=== PATIENT | male | born 1980 | race Caucasian/White ===

== ENCOUNTER 2019-04-13 17:54 | Emergency (ER) | payer MEDICAID ==
[~2019-04-13] VITALS: Ht 185.4 cm; Wt 136.2 kg
[2019-04-13 18:01] VITALS: BP 157/87
[2019-04-13] MEDS ORDERED: DOXY100C77 PO (18:57)
== END 2019-04-13 19:23 | disposition home or self-care (01) ==
LOC: ER 17:55
DX: L03.116 Cellulitis of left lower limb (principal); I10 Essential (primary) hypertension; F41.9 Anxiety disorder, unspecified; F32.9 Major depressive disorder, single episode, unspecified; Z56.0 Unemployment, unspecified; Z88.0 Allergy status to penicillin; Z79.899 Other long term (current) drug therapy
CPT/HCPCS: 99283

== ENCOUNTER 2019-06-01 10:37 | Inpatient (IN) | payer MEDICAID ==
[~2019-06-01] VITALS: Ht 185.4 cm; Wt 134.1 kg
--- NOTE | 2019-06-01 | NUR ---
resting eyes closed no changes.
[2019-06-01 12:26] LABS: BASOPHILS # (AUTO) 0.1 X10'3 (0-0.2); BASOPHILS % (AUTO) 0.5 % (0-1); EOSINOPHILS # (AUTO) 0.1 X10'3 (0-0.9); EOSINOPHILS % (AUTO) 0.8 % (0-6); HEMATOCRIT 44.6 % (42.0-52.0); HEMOGLOBIN 14.9 g/dl (14.0-17.9); LYMPHOCYTES # (AUTO) 2.3 X10'3 (1.1-4.8); LYMPHOCYTES % (AUTO) 14.5 % (21-51); MEAN CORPUSCULAR HEMOGLOBIN 29.7 PG (27.0-31.0); MEAN CORPUSCULAR HGB CONC 33.3 g/dL (33.0-36.5); MEAN CORPUSCULAR VOLUME 89.2 FL (78-98); MEAN PLATELET VOLUME 8.2 FL (7.4-10.4); MONOCYTES # (AUTO) 1.8 X10'3 (0-0.9); MONOCYTES % (AUTO) 11.2 % (2-12); NEUTROPHILS # (AUTO) 11.8 X10'3 (1.8-7.7); PLATELET COUNT 305 X10'3 (140-440); RED CELL DISTRIBUTION WIDTH 12.5 % (11.5-14.5); WHITE BLOOD COUNT 16.1 X10'3 (4.5-11.0)
[2019-06-01 12:31] LABS: CLARITY,URINE CLEAR (Clear); COLOR,URINE STRAW (Yellow); GLUCOSE, URINE NEGATIVE (Neg); KETONES,URINE NEGATIVE (Neg); LEUKOCYTE ESTERASE ,URINE NEGATIVE (Neg); NITRITES, URINE NEGATIVE (Neg); OCCULT BLOOD,URINE TRACE-INTACT (Neg); PROTEIN,URINE NEGATIVE (Neg); UA COLLECTION TYPE CLN CATCH MIDSTREAM; UROBILINOGEN,URINE 0.2 E.U/dL (0.2-1.0)
[2019-06-01 12:38] LABS: BACTERIA,URINE NONE SEEN /HPF (Neg); MUCUS STRANDS NONE SEEN /LPF (Neg); RBC,URINE 0-2 /HPF (0-2); SQUAMOUS EPITHELIAL CELL,UR NONE SEEN /LPF (FEW); WBC,URINE NONE SEEN /HPF (0-4)
[2019-06-01 12:39] LABS: ALANINE AMINOTRANSFERASE 33 U/L (12-78); ALBUMIN 4.3 G/DL (3.4-5.0); ALBUMIN/GLOBULIN RATIO 1.1 (1.1-1.5); ALKALINE PHOSPHATASE 76 IU/L (46-116); ANION GAP 5 (8-16); ASPARTATE AMINO TRANSFERASE 16 U/L (10-37); BILIRUBIN,TOTAL 1.8 MG/DL (0.1-1.0); BLOOD UREA NITROGEN 13 MG/DL (7-18); BUN/CREATININE RATIO 10.3 (5.4-32.0); CALCIUM 9.1 MG/DL (8.5-10.1); CHLORIDE 103 MMOL/L (99-107); CREATININE 1.26 MG/DL (0.60-1.10); GLUCOSE 103 MG/DL (70-104); LIPASE 130 U/L (73-393); SODIUM 137 MMOL/L (135-145); TOTAL CARBON DIOXIDE 28.8 MMOL/L (24-32); TOTAL PROTEIN 8.2 G/DL (6.4-8.2); eGFR 63 ML/MIN
[2019-06-01] MEDS ORDERED: metroNIDAZOLE-Flagyl 500mg/NS 100 ML IV ONE (13:35)
[2019-06-01] MEDS ORDERED: CefTRIAXone/D5W-Rocephin 1gm 50 ML IV ONE (13:35)
[2019-06-01] MEDS ORDERED: magnesium hydroxide 30ml (MOM) UD suspension PO PRN (13:40)
[2019-06-01] MEDS ORDERED: morphine 2 MG/ML inj. syringe IV PRN ×2 (13:40)
[2019-06-01] MEDS ORDERED: mag hydrox/Alum hydrox/simeth 30ml oral suspension PO PRN (13:40)
[2019-06-01] MEDS ORDERED: ondansetron/PF 4mg/2ml inj IV PRN (13:40)
[2019-06-01] MEDS ORDERED: acetaminophen 325mg tablet PO PRN (13:40)
[2019-06-01] MEDS ORDERED: normal saline 1000ML IV soln IVB ONE (13:50)
[2019-06-01] MEDS ORDERED: LORA-269 PO ×2 (13:52→13:55)
[2019-06-01] MEDS ORDERED: LORA2TAB96 PO (13:52)
[2019-06-01] MEDS ORDERED: LORazepam 1 MG tablet PO PRN (14:30)
--- NOTE | 2019-06-01 14:55 | NUR ---
Report received from ED RN, Kareem.
[2019-06-01 15:15] VITALS: BP 145/104
[2019-06-01] MEDS: normal saline 1000ml 1,000 ML IV SCH (15:54)
[2019-06-01] MEDS: acetaminophen 325mg tablet PO PRN ×2 (16:20→22:22)
--- NOTE | 2019-06-01 18:30 | NUR ---
Problems reprioritized. Patient report given, questions answered & plan of care reviewed with LEONA Horvath.
--- NOTE | 2019-06-01 18:42 | NUR ---
Patient in room [facility]. I have received report from NORA DELGADILLO and had the opportunity to ask questions and assume patient care. Addendum: 06/01/19 at 1842 by Yuliet Blevins RN Amended: Links added.
[2019-06-01 19:00] VITALS: BP 108/72
[2019-06-01] MEDS: LORazepam 1 MG tablet PO SCH (20:59)
--- NOTE | 2019-06-01 22:23 | NUR ---
MEDICATED FOR ABD PAIN 07/24 WITH TYLENOL PER REQUEST.
--- NOTE | 2019-06-01 22:24 | NUR ---
PT WAS UP AMBULATING IN THE HALLS HAD DRANK SOME WARM APPLE JUICE WITH BUTTER. PT FACETIME WITH HIS .
[2019-06-02] VITALS: BP 127/79
[2019-06-02] MEDS: metroNIDAZOLE-Flagyl 500mg/NS 100 ML IV SCH ×4 (00:15→23:30)
--- NOTE | 2019-06-02 02:00 | NUR ---
up ambulated to brp tolerated well. no complaints.
[2019-06-02] MEDS: normal saline 1000ml 1,000 ML IV SCH ×3 (03:01→21:05)
--- NOTE | 2019-06-02 04:00 | NUR ---
resting eyes closed without s&s of distress at this time.
--- NOTE | 2019-06-02 05:41 | NUR ---
RESTING WITH CPAP ON NO S&S OF DISTRESS.
[2019-06-02 06:03] LABS: BASOPHILS # (AUTO) 0.1 X10'3 (0-0.2); BASOPHILS % (AUTO) 0.6 % (0-1); EOSINOPHILS # (AUTO) 0.2 X10'3 (0-0.9); EOSINOPHILS % (AUTO) 1.1 % (0-6); HEMATOCRIT 40.9 % (42.0-52.0); HEMOGLOBIN 13.7 g/dl (14.0-17.9); LYMPHOCYTES # (AUTO) 2.6 X10'3 (1.1-4.8); LYMPHOCYTES % (AUTO) 19.2 % (21-51); MEAN CORPUSCULAR HGB CONC 33.4 g/dL (33.0-36.5); MEAN CORPUSCULAR VOLUME 89.6 FL (78-98); MEAN PLATELET VOLUME 8.6 FL (7.4-10.4); MONOCYTES # (AUTO) 1.7 X10'3 (0-0.9); MONOCYTES % (AUTO) 12.9 % (2-12); NEUTROPHILS # (AUTO) 8.9 X10'3 (1.8-7.7); NEUTROPHILS % (AUTO) 66.2 % (42-75); PLATELET COUNT 268 X10'3 (140-440); RED BLOOD COUNT 4.56 X10'6 (4.70-6.10); RED CELL DISTRIBUTION WIDTH 12.5 % (11.5-14.5); WHITE BLOOD COUNT 13.5 X10'3 (4.5-11.0)
--- NOTE | 2019-06-02 06:10 | NUR ---
Patient in room [facility]. I have received report from LEONA Horvath and had the opportunity to ask questions and assume patient care.
[2019-06-02 06:30] VITALS: BP 113/69
[2019-06-02 06:38] LABS: ALBUMIN 3.5 G/DL (3.4-5.0); ANION GAP 9 (8-16); BLOOD UREA NITROGEN 10 MG/DL (7-18); BUN/CREATININE RATIO 9.1 (5.4-32.0); CALCIUM 8.8 MG/DL (8.5-10.1); CHLORIDE 106 MMOL/L (99-107); GLUCOSE 95 MG/DL (70-104); POTASSIUM 4.1 MMOL/L (3.5-5.1); SODIUM 140 MMOL/L (135-145); TOTAL CARBON DIOXIDE 25.2 MMOL/L (24-32); eGFR 74 ML/MIN
--- NOTE | 2019-06-02 06:41 | NUR ---
Problems reprioritized. Patient report given, questions answered & plan of care reviewed with NORA DELGADILLO. Addendum: 06/02/19 at 0642 by Yuliet Blevins RN Amended: Links added.
[2019-06-02] MEDS: acetaminophen 325mg tablet PO PRN ×3 (07:55→22:11)
[2019-06-02] MEDS: levoFLOXACIN-Levaquin 750MG/D5 150 ML IV SCH (09:34)
[2019-06-02 11:00] VITALS: BP 127/78
--- NOTE | 2019-06-02 18:10 | NUR ---
Problems reprioritized. Patient report given, questions answered & plan of care reviewed with LEONA Horvath.
--- NOTE | 2019-06-02 18:49 | NUR ---
Patient in room [facility]. I have received report from NORA DELGADILLO and had the opportunity to ask questions and assume patient care. Addendum: 06/02/19 at 1849 by Yuliet Blevins RN Amended: Links added.
[2019-06-02 19:00] VITALS: BP 126/72
[2019-06-02] MEDS: lactobacillus rhamnosus 10,000 MMU CELLS/CAPSULE PO SCH (21:05)
[2019-06-02] MEDS: LORazepam 1 MG tablet PO SCH (21:05)
--- NOTE | 2019-06-02 22:09 | NUR ---
medicated with tylenol for abd pain 2/10 at this time.
--- NOTE | 2019-06-02 23:31 | NUR ---
pt up ambulating in the [place] after having a small formed non mucoid stool. pt states he feels a lot better.
[2019-06-03] VITALS: BP 125/75
--- NOTE | 2019-06-03 01:10 | NUR ---
resting with cpap without changes.
[2019-06-03 02:10] VITALS: BP 143/89
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
--- NOTE | 2019-06-03 02:41 | NUR ---
SEE ABOVE NOTES REGARDING PT STATED PANIC ATTACK. Addendum: 06/03/19 at 0241 by Yuliet Blevins RN Amended: Links added.
--- NOTE | 2019-06-03 02:42 | NUR ---
BP NOW 143/84 SAT 99% RESP 18, HEART RATE 89.
--- NOTE | 2019-06-03 03:45 | NUR ---
AWAKE IV TUBING CHANGED. OFF CPAP AT THIS TIME THEN UP AMBULATING IN THE [place]. PT STATES FEELS BETTER NOW.
[2019-06-03] MEDS: normal saline 1000ml 1,000 ML IV SCH (05:34)
--- NOTE | 2019-06-03 05:38 | NUR ---
PT RESTING EYES CLOSED WITHOUT S&S OF DISTRESS REMAINS ON CPAP. APPEARS COMFORTABLE.
[2019-06-03 06:13] LABS: BASOPHILS % (AUTO) 0.5 % (0-1); EOSINOPHILS # (AUTO) 0.2 X10'3 (0-0.9); EOSINOPHILS % (AUTO) 1.8 % (0-6); HEMATOCRIT 40.3 % (42.0-52.0); HEMOGLOBIN 13.8 g/dl (14.0-17.9); LYMPHOCYTES # (AUTO) 2.4 X10'3 (1.1-4.8); MEAN CORPUSCULAR HEMOGLOBIN 30.6 PG (27.0-31.0); MEAN CORPUSCULAR HGB CONC 34.1 g/dL (33.0-36.5); MEAN CORPUSCULAR VOLUME 89.5 FL (78-98); MEAN PLATELET VOLUME 8.4 FL (7.4-10.4); MONOCYTES # (AUTO) 1.2 X10'3 (0-0.9); NEUTROPHILS # (AUTO) 6.7 X10'3 (1.8-7.7); NEUTROPHILS % (AUTO) 63.7 % (42-75); PLATELET COUNT 280 X10'3 (140-440); RED CELL DISTRIBUTION WIDTH 12.7 % (11.5-14.5); WHITE BLOOD COUNT 10.5 X10'3 (4.5-11.0)
--- NOTE | 2019-06-03 06:20 | NUR ---
Patient in room [facility]. I have received report from LEONA Horvath and had the opportunity to ask questions and assume patient care.
--- NOTE | 2019-06-03 06:28 | NUR ---
Problems reprioritized. Patient report given, questions answered & plan of care reviewed with NORA DELGADILLO. Addendum: 06/03/19 at 0629 by Yuliet Blevins RN Amended: Links added.
[2019-06-03 06:30] VITALS: BP 126/75
[2019-06-03 06:41] LABS: ALBUMIN 3.5 G/DL (3.4-5.0); ANION GAP 12 (8-16); BLOOD UREA NITROGEN 9 MG/DL (7-18); BUN/CREATININE RATIO 7.8 (5.4-32.0); CALCIUM 9.1 MG/DL (8.5-10.1); CHLORIDE 106 MMOL/L (99-107); CREATININE 1.16 MG/DL (0.60-1.10); GLUCOSE 92 MG/DL (70-104); POTASSIUM 3.9 MMOL/L (3.5-5.1); SODIUM 143 MMOL/L (135-145); TOTAL CARBON DIOXIDE 24.8 MMOL/L (24-32); eGFR 70 ML/MIN
[2019-06-03] MEDS: metroNIDAZOLE-Flagyl 500mg/NS 100 ML IV SCH (07:30)
[2019-06-03] MEDS: lactobacillus rhamnosus 10,000 MMU CELLS/CAPSULE PO SCH (07:30)
[2019-06-03] MEDS: levoFLOXACIN-Levaquin 750MG/D5 150 ML IV SCH (09:21)
[2019-06-03] MEDS ORDERED: LEVO750T21 PO (10:58)
[2019-06-03] MEDS ORDERED: METR-159 PO (10:58)
--- NOTE | 2019-06-03 13:35 | NUR ---
DC inst provided to pt. IV DC'd, tip intact. All belongings sent w/pt. Pt ambulated to front lobby.
== END 2019-06-03 13:30 | disposition home or self-care (01) | DRG 244 ==
LOC: ER 10:38 → ED HOLD 13:40 → EDBEDREQ 14:16 → SUR 3N 15:35
PROVIDERS: ADMIT Family Medicine; ATTEND Family Medicine
DX: K57.32 Diverticulitis of large intestine without perforation or abscess without bleeding (principal); D72.829 Elevated white blood cell count, unspecified; F32.9 Major depressive disorder, single episode, unspecified; F41.9 Anxiety disorder, unspecified; R00.0 Tachycardia, unspecified; G47.00 Insomnia, unspecified; G47.30 Sleep apnea, unspecified; I10 Essential (primary) hypertension; Z88.0 Allergy status to penicillin; Z79.899 Other long term (current) drug therapy
CPT/HCPCS: 36415; 74176; 80048; 80053; 81001; 83605; 83690; 83735; 85025; 87040; 87081; 99285; G0378; J0696; J1956; J3490; J7030

== ENCOUNTER 2019-06-30 00:12 | Emergency (ER) | payer MEDICAID ==
[~2019-06-30] VITALS: Ht 185.4 cm; Wt 132.0 kg
[~2019-06-30 00:12] MED LIST: LORA-269 PO; METR-159 PO
[2019-06-30 00:52] LABS: CLARITY,URINE CLEAR (Clear); COLOR,URINE YELLOW (Yellow); GLUCOSE, URINE NEGATIVE (Neg); KETONES,URINE NEGATIVE (Neg); LEUKOCYTE ESTERASE ,URINE NEGATIVE (Neg); NITRITES, URINE NEGATIVE (Neg); OCCULT BLOOD,URINE NEGATIVE (Neg); PROTEIN,URINE NEGATIVE (Neg); UROBILINOGEN,URINE 0.2 E.U/dL (0.2-1.0)
[2019-06-30 00:54] LABS: BASOPHILS # (AUTO) 0.1 X10'3 (0-0.2); BASOPHILS % (AUTO) 0.7 % (0-1); EOSINOPHILS # (AUTO) 0.3 X10'3 (0-0.9); EOSINOPHILS % (AUTO) 2.8 % (0-6); HEMATOCRIT 44.3 % (42.0-52.0); HEMOGLOBIN 14.8 g/dl (14.0-17.9); LYMPHOCYTES # (AUTO) 3.7 X10'3 (1.1-4.8); LYMPHOCYTES % (AUTO) 32.4 % (21-51); MEAN CORPUSCULAR HEMOGLOBIN 29.8 PG (27.0-31.0); MEAN CORPUSCULAR HGB CONC 33.4 g/dL (33.0-36.5); MEAN CORPUSCULAR VOLUME 89.4 FL (78-98); MEAN PLATELET VOLUME 8.1 FL (7.4-10.4); MONOCYTES # (AUTO) 1.3 X10'3 (0-0.9); MONOCYTES % (AUTO) 10.9 % (2-12); NEUTROPHILS # (AUTO) 6.1 X10'3 (1.8-7.7); NEUTROPHILS % (AUTO) 53.2 % (42-75); PLATELET COUNT 260 X10'3 (140-440); RED BLOOD COUNT 4.95 X10'6 (4.70-6.10); WHITE BLOOD COUNT 11.5 X10'3 (4.5-11.0)
[2019-06-30 01:02] LABS: ANION GAP 9 (8-16); BLOOD UREA NITROGEN 5 MG/DL (7-18); BUN/CREATININE RATIO 4.4 (5.4-32.0); CHLORIDE 104 MMOL/L (99-107); CREATININE 1.13 MG/DL (0.60-1.10); GLUCOSE 90 MG/DL (70-104); SODIUM 143 MMOL/L (135-145); TOTAL CARBON DIOXIDE 30.4 MMOL/L (24-32)
[2019-06-30 01:02] LABS: UA COLLECTION TYPE VOIDED
[2019-06-30 01:03] LABS: ALANINE AMINOTRANSFERASE 70 U/L (12-78); ALBUMIN 4.3 G/DL (3.4-5.0); ALBUMIN/GLOBULIN RATIO 1.1 (1.1-1.5); ALKALINE PHOSPHATASE 57 IU/L (46-116); ASPARTATE AMINO TRANSFERASE 36 U/L (10-37); BILIRUBIN,TOTAL 0.6 MG/DL (0.1-1.0); CALCIUM 9.3 MG/DL (8.5-10.1); LIPASE 184 U/L (73-393); TOTAL PROTEIN 8.2 G/DL (6.4-8.2); eGFR 72 ML/MIN
[2019-06-30] MEDS ORDERED: metroNIDAZOLE-Flagyl 500mg/NS 100 ML IV STA (01:33)
[2019-06-30] MEDS ORDERED: LORazepam 2 mg/ml vial IV ONE (01:35)
[2019-06-30] MEDS ORDERED: normal saline 1000ML IV soln IVB ONE (01:35)
[2019-06-30] MEDS ORDERED: ONDA4TAB6 PO (02:13)
[2019-06-30] MEDS ORDERED: METR500T PO (02:13)
[2019-06-30] MEDS ORDERED: HYDR-3965 PO (02:13)
[2019-06-30] MEDS ORDERED: CIPR-259 PO (02:13)
[2019-06-30 03:58] VITALS: BP 126/66
[2019-06-30] MEDS ORDERED: ciprofloxacin lact 400MG/200ML 200 ML IV SCH (08:00)
== END 2019-06-30 04:00 | disposition home or self-care (01) ==
LOC: ER 00:13
DX: R10.31 Right lower quadrant pain (principal); R10.32 Left lower quadrant pain; I10 Essential (primary) hypertension; F41.9 Anxiety disorder, unspecified; F32.9 Major depressive disorder, single episode, unspecified; Z56.0 Unemployment, unspecified; Z88.0 Allergy status to penicillin; Z79.899 Other long term (current) drug therapy
CPT/HCPCS: 36415; 80053; 81003; 83605; 83690; 85025; 96365; 96366; 96368; 96375; 99285; J0744; J2060; J3490; J7030

== ENCOUNTER 2019-07-11 09:40 | Day surgery (SDC) | payer MEDICAID ==
[~2019-07-11] VITALS: Ht 185.4 cm; Wt 127.3 kg
[~2019-07-11 09:40] MED LIST changes: +CIPR-259 PO; +HYDR-3965 PO; -METR-159 PO; +ONDA4TAB6 PO
[2019-07-11 09:50] VITALS: BP 157/88
[2019-07-11] MEDS ORDERED: MIDAZolam 5mg/5ml vial ONE (09:51)
[2019-07-11] MEDS ORDERED: fentaNYL/PF 50MCG/1 ML 2ML syringe ONE ×2 (09:51→11:42)
[2019-07-11] MEDS ORDERED: LIDOcaine Viscous 15ml cup ONE (09:51)
[2019-07-11 11:45] VITALS: BP 120/78
[2019-07-11 11:55] VITALS: BP 115/65
[2019-07-11 12:05] VITALS: BP 118/92
[2019-07-11 12:15] VITALS: BP 115/64
== END 2019-07-11 12:30 | disposition home or self-care (01) ==
LOC: GI LAB 09:40
PROVIDERS: ATTEND Internal Medicine Gastroenterology
DX: K57.20 Diverticulitis of large intestine with perforation and abscess without bleeding (principal); K63.5 Polyp of colon; K57.30 Diverticulosis of large intestine without perforation or abscess without bleeding; K64.8 Other hemorrhoids
CPT/HCPCS: 45385; 99152; 99153; C1773; J2250; J3010; J7040; A4620

== ENCOUNTER 2019-07-30 19:07 | Emergency (ER) | payer MEDICAID ==
[~2019-07-30] VITALS: Ht 185.4 cm; Wt 124.0 kg
[~2019-07-30 19:07] MED LIST changes: -CIPR-259 PO; -HYDR-3965 PO; -ONDA4TAB6 PO
[2019-07-30 19:09] VITALS: BP 132/81
[2019-07-30] MEDS ORDERED: CEPH250T PO (19:45)
[2019-07-30] MEDS ORDERED: SULF1TAB49 PO (19:45)
== END 2019-07-30 19:51 | disposition home or self-care (01) ==
LOC: ER 19:08
DX: L03.116 Cellulitis of left lower limb (principal); L03.112 Cellulitis of left axilla; L03.111 Cellulitis of right axilla; L03.811 Cellulitis of head [any part, except face]; I10 Essential (primary) hypertension; F41.9 Anxiety disorder, unspecified; F32.9 Major depressive disorder, single episode, unspecified; Z56.0 Unemployment, unspecified; Z86.14 Personal history of Methicillin resistant Staphylococcus aureus infection; Z88.0 Allergy status to penicillin; Z79.899 Other long term (current) drug therapy
CPT/HCPCS: 99283

== ENCOUNTER 2024-08-23 10:33 | Outpatient (CLI) | payer MEDICAID ==
[2024-08-23] VITALS (21 sets, daily range): BP systolic 125–146; BP diastolic 62–100; PULSE 72–94
--- NOTE | 2024-08-26 16:37 | CARDIOLOGY REPORT ---
DATE OF SERVICE: 08/23/2024 DICTATING PHYSICIAN: Fernando Javier MD NAME OF PROCEDURE: Tilt table test. DATE OF STUDY: 08/23/2024 DESCRIPTION: The patient underwent tilt-table testing per protocol. During testing, the patient remained clinically and hemodynamically stable. No symptoms were reported. IMPRESSION: Negative head up tilt-table test. Fernando Javier MD TID: [id number] RECEIPT: [id number] VANESSA/ONELIA
== END 2024-08-23 23:59 | disposition home or self-care (01) ==
LOC: CARD DIAG 10:33
PROVIDERS: ATTEND Internal Medicine Interventional Cardiology
DX: R00.2 Palpitations (principal); R42 Dizziness and giddiness
CPT/HCPCS: 93660